=== PATIENT | female | born 1985 | race African-American/Black ===

== ENCOUNTER 2022-02-03 07:01 | Inpatient (IN) ==
[2022-02-03] MEDS ORDERED: miSOPROStoL 200 MCG TABLET RECTAL PRN (07:49)
[2022-02-03] MEDS ORDERED: METHYLERGONOVINE 0.2 MG/1 ML AMP IM PRN (07:49)
[2022-02-03] MEDS ORDERED: CITRIC ACID/SODIUM CITRATE 30 ML UDCUP PO ONE (07:49)
[2022-02-03] MEDS ORDERED: ceFAZolin 2,000 MG/50 ML DUPLEX IV ONE (07:49)
[2022-02-03] MEDS ORDERED: CARBOPROST TROMETHAMINE 250 MCG/ML AMP IM PRN (07:49)
[2022-02-03] MEDS ORDERED: FAMOTIDINE 20 MG/2 ML VIAL IV ONE (07:49)
[2022-02-03] MEDS ORDERED: TRANEXAMIC ACID 1,000 MG in SODIUM CHLORIDE 0.9% 100 ML IV PRN (07:49)
[2022-02-03] MEDS ORDERED: OXYTOCIN/LR 20 UNIT/1,000 ML BAG IV ONE ×2 (07:49→10:29)
[2022-02-03] MEDS ORDERED: OXYTOCIN/LR 30 UNIT/1,000 ML BAG IV ONE (07:51)
[2022-02-03] MEDS ORDERED: OXYTOCIN 10 UNIT/ML VIAL IM ONE (07:51)
[2022-02-03] MEDS ORDERED: LACTATED RINGERS 1,000 ML IV SCH ×2 (08:00→10:30)
[2022-02-03 08:20] LABS: Basophils % 0.3 % (0.0-0.8); Eosinophils # 0.1 10*3/uL (0.0-0.87); Eosinophils % 0.5 % (0.00-10.9); Hematocrit 38.6 VOL% (35.7-47.0); Hemoglobin 11.8 GM/DL (12.0-16.0); Immature Granulocytes % 0.7 %; Immature Granulocytes Absolute 0.07 #; Lymphocytes # 2.2 10*3/uL (1.4-4.0); Lymphocytes % 20.5 % (21.3-54.2); Mean Corpuscular HGB Conc 30.6 GM/DL (32-36); Mean Platelet Volume 10.3 FL (9.6-12.0); Monocytes # 0.5 10*3/uL (0.11-0.8); Platelet Count 207 T/CUMM (130-400); Red Blood Count 4.49 MC/CUMM (3.8-5.5); Red Cell Distribution Width 15.1 % (9.3-17.3); White Blood Count 10.7 T/CUMM (4-12)
[2022-02-03 08:41] LABS: Alanine Aminotransferase 19 U/L (13-56); Albumin 2.4 G/DL (3.4-5.0); Alkaline Phosphatase 144 U/L (45-117); Aspartate Amino Transferase 15 U/L (0-37); Bilirubin,Total < 0.39 MG/DL (0.20-1.00); Blood Urea Nitrogen 8 MG/DL (7-18); Calcium 7.8 MG/DL (8.5-10.1); Carbon Dioxide 21 MMOL/L (21-32); Chloride 110 MMOL/L (98-107); Glucose 101 MG/DL (74-106); Osmolality,Calculated 276.4 MOS/KG (273-304); Sodium 140 MMOL/L (136-145); Total Protein 5.8 G/DL (6.4-8.2)
[2022-02-03] MEDS ORDERED: METHYLERGONOVINE 0.2 MG/1 ML AMP ONE (08:45)
[2022-02-03] MEDS ORDERED: TRANEXAMIC ACID 1,000 MG/10 ML VIAL ONE (08:45)
[2022-02-03] MEDS ORDERED: SODIUM CHLORIDE 0.9% 0 ML IV ONE (08:45)
[2022-02-03] MEDS ORDERED: miSOPROStoL 200 MCG TABLET ONE (08:45)
[2022-02-03] MEDS ORDERED: CARBOPROST TROMETHAMINE 250 MCG/ML AMP IM ONE (08:46)
[2022-02-03] MEDS ORDERED: ONDANSETRON 4 MG/2 ML VIAL ONE (09:04)
[2022-02-03] MEDS ORDERED: buprenorphine HCL 0.3 MG/ML VIAL ONE (09:04)
[2022-02-03] MEDS ORDERED: ACETAMINOPHEN INJ 1,000 MG/100 ML VIAL IV ONE (09:47)
[2022-02-03] MEDS ORDERED: KETOROLAC 30 MG/1 ML VIAL ONE (09:47)
[2022-02-03 10:02] LABS: Cord Arterial Blood HCO3 21.9 MMOL/L
[2022-02-03 10:06] LABS: Cord Venous Blood HCO3 22.7 MMOL/L; Cord Venous Blood PCO2 49.4 MMHG; Cord Venous Blood PO2 24.5
[2022-02-03 10:20] LABS: Mucus,Urine Occasional /LPF (Occasional); RBC,Urine 1 /HPF (0-4); Squamous Epithelial Cell,Urine Occasional /HPF (0-10); Urine Appearance Clear (Clear); Urine Color Yellow (Yellow)
[2022-02-03 10:21] LABS: Bilirubin,Urine Negative (Negative); Blood, Urine Negative (Negative); Glucose,Urine (UA) Negative (Negative); Ketones,Urine Negative (Negative); Nitrite,Urine Negative (Negative); Protein,Urine Negative (Negative); Urine Specific Gravity 1.025 (1.001-1.035); Urine Urobilinogen 0.2 eU/dL (<2.0)
[2022-02-03] MEDS ORDERED: ONDANSETRON 4 MG/2 ML VIAL IV PRN (10:29)
[2022-02-03] MEDS ORDERED: MAGNESIUM HYDROXIDE SUSP 30 ML UDCUP PO PRN (10:29)
[2022-02-03] MEDS ORDERED: RHO(D) IMMUNE GLOBULIN 300 MCG SYRINGE IM ONE (10:29)
[2022-02-03] MEDS ORDERED: ACETAMINOPHEN 325 MG TABLET PO PRN (10:29)
[2022-02-03] MEDS ORDERED: SIMETHICONE CHEW 80 MG TABLET PO PRN (10:29)
[2022-02-03] MEDS: diphenhydrAMINE 50 MG/1 ML VIAL IV PRN ×2 (13:21→20:58)
[2022-02-03] MEDS ORDERED: METOCLOPRAMIDE 10 MG/2 ML VIAL IV SCH (13:30)
[2022-02-03] MEDS: ACETAMINOPHEN 500 MG TABLET PO SCH ×2 (17:28→22:25)
[2022-02-03] MEDS: KETOROLAC 30 MG/1 ML VIAL IV SCH ×2 (17:35→22:24)
[2022-02-03 18:23] LABS: Basophils % 0.2 % (0.0-0.8); Eosinophils # 0.1 10*3/uL (0.0-0.87); Eosinophils % 0.5 % (0.00-10.9); Hematocrit 35.2 VOL% (35.7-47.0); Hemoglobin 11.3 GM/DL (12.0-16.0); Lymphocytes # 2.7 10*3/uL (1.4-4.0); Lymphocytes % 21.6 % (21.3-54.2); Mean Corpuscular HGB Conc 32.1 GM/DL (32-36); Mean Corpuscular Volume 84.4 FL (87-102); Mean Platelet Volume 10.6 FL (9.6-12.0); Monocytes # 0.6 10*3/uL (0.11-0.8); Monocytes % 5.1 % (1.7-12.7); Platelet Count 190 T/CUMM (130-400); Red Blood Count 4.17 MC/CUMM (3.8-5.5); Red Cell Distribution Width 15.1 % (9.3-17.3); White Blood Count 12.3 T/CUMM (4-12)
[2022-02-03] MEDS ORDERED: METOCLOPRAMIDE 10 MG TABLET PO PRN (22:00)
[2022-02-03] MEDS ORDERED: METOCLOPRAMIDE 10 MG/10 ML UDCUP PO PRN (22:00)
[2022-02-03] MEDS: DOCUSATE SODIUM 100 MG CAPSULE PO SCH (22:23)
[2022-02-04 05:35] LABS: Basophils % 0.3 % (0.0-0.8); Eosinophils # 0.2 10*3/uL (0.0-0.87); Eosinophils % 1.7 % (0.00-10.9); Hematocrit 36.6 VOL% (35.7-47.0); Hemoglobin 11.5 GM/DL (12.0-16.0); Lymphocytes # 2.6 10*3/uL (1.4-4.0); Mean Corpuscular HGB Conc 31.4 GM/DL (32-36); Mean Corpuscular Volume 85.7 FL (87-102); Mean Platelet Volume 10.2 FL (9.6-12.0); Monocytes # 0.8 10*3/uL (0.11-0.8); Monocytes % 6.3 % (1.7-12.7); Platelet Count 202 T/CUMM (130-400); Red Blood Count 4.27 MC/CUMM (3.8-5.5); Red Cell Distribution Width 15.2 % (9.3-17.3)
[2022-02-04] MEDS: ACETAMINOPHEN 500 MG TABLET PO SCH (06:28)
[2022-02-04] MEDS: KETOROLAC 30 MG/1 ML VIAL IV SCH (06:28)
[2022-02-04] MEDS: MULTIVITAMIN (PRENATAL) TABLET PO SCH (08:58)
[2022-02-04] MEDS: DOCUSATE SODIUM 100 MG CAPSULE PO SCH (08:58)
[2022-02-04] MEDS ORDERED: METOCLOPRAMIDE 10 MG TABLET PO SCH (09:00)
[2022-02-04] MEDS: IBUPROFEN 800 MG TABLET PO PRN (17:45)
[2022-02-05] MEDS: DOCUSATE SODIUM 100 MG CAPSULE PO SCH ×2 (02:35→08:36)
[2022-02-05] MEDS: IBUPROFEN 800 MG TABLET PO PRN (03:51)
[2022-02-05] MEDS: MULTIVITAMIN (PRENATAL) TABLET PO SCH (08:37)
[2022-02-05 08:46] VITALS: BP 150/89
== END 2022-02-05 12:48 | disposition home or self-care (01) | DRG 540 ==
LOC: N.LD 07:01 → N.OB 12:40
PROVIDERS: ADMIT Obstetrics & Gynecology; ATTEND Obstetrics & Gynecology
PROC: LDCSECT (ICD-10-PCS; 2022-02-03 08:00)